=== PATIENT | female | born 1935 | race Caucasian/White ===

== ENCOUNTER 2018-06-14 13:37 | Outpatient (CLI) | payer MEDICARE ==
[~2018-06-14 13:37] MED LIST: Gadobenate Dimeglumine 529 MG/1 ML (20ML VIAL) ONE
--- NOTE | 2018-06-14 16:45 | MRI ---
BRAIN MRI WITH AND WITHOUT CONTRAST: Date: 06/14/18 COMPARISON: 01/09/15. CLINICAL HISTORY: Benign neoplasm of brain, unspecified, follow-up. FINDINGS: Redemonstration of dural based, extra-axial mass overlying the lateral right, posterior frontal conve xity near the vertex, with mass remaining at 2.0 cm in diameter. Mild localized mass effect is seen w ithout evidence of midline shift. Ventricular volume is stable. Periventricular white matter signal a lteration is again seen, most consistent with mild chronic ischemic disease. No significant intracran ial hemorrhagic susceptibility. There is stable burnham artifact of the right mid temporal region. IMPRESSION: Stable enhancing dural based extra-axial mass overlying the high right frontal convexity, most consis tent with meningioma. No significant interval size progression compared to prior exam. POS: [facility]
== END 2018-06-14 13:38 | disposition home or self-care (01) ==
LOC: TBSIIMAG 13:37
PROVIDERS: ATTEND Neurological Surgery
DX: D33.2 Benign neoplasm of brain, unspecified (principal)
CPT/HCPCS: 70553; 82565